=== PATIENT | male | born 1955 | race Caucasian/White ===

== ENCOUNTER 2018-06-25 14:10 | Emergency (ER) | payer OTHER ==
[2018-06-25 14:20] VITALS: BP 125/68
[2018-06-25] MEDS ORDERED: KETOROLAC TROMETHAMINE 60 MG/2 ML SDV IM ONE (14:25)
[2018-06-25] MEDS ORDERED: HYDROCODONE/ACETAMINOPHEN 5-325 MG TABLET PO ONE (14:25)
--- NOTE | 2018-06-25 14:59 | ER Document Report ---
ED Extremity Problem, Upper - General Chief Complaint: Arm Injury Stated Complaint: RIGHT WRIST INJURY Time Seen by Provider: 06/25/18 14:22 Mode of Arrival: Ambulatory Information source: Patient Notes: Chief complaint: fall History of complain:( obtained from----patient) 62 years old male fell off from a ladder about 2 feet, landed on her right arm since then having deformity of the distal right forearm And pain, minor injury to the left lower leg and right lower leg. No head injury no loss of consciousness currently has no headache no focal focal weakness. Denies any neck pain neck stiffness. Denies any injury to the upper back or lower back. Denies any chest pain shortness of breath. Denies any abdominal pain nausea vomiting. Ambulatory. No injury to the lower extremity to the point having difficulty in ambulation. Onset: As above Duration: Just prior to arrival Severity: Moderate Quality: Sharp Context:fall Exacerbating factor and relieving factors: Movement right forearm REVIEW OF SYSTEMS: CONSTITUTIONAL : Denies fever, chills, or sweats. Denies recent illness. EENT: Denies eye, ear, throat, or mouth pain or symptoms. Denies nasal or sinus congestion or discharge. Denies throat, tongue, or mouth swelling or difficulty swallowing. CARDIOVASCULAR: Denies chest pain. Denies palpitations or racing or irregular heart beat. Denies ankle edema. RESPIRATORY: Denies cough, cold, or chest congestion. Denies shortness of breath, difficulty breathing, or wheezing. GASTROINTESTINAL: Denies distention. Denies nausea, vomiting, or diarrhea. Denies blood in vomitus, stools, or per rectum. Denies black, tarry stools. Denies constipation. GENITOURINARY: Denies difficulty urinating, painful urination, burning, frequency, blood in urine, or discharge. FEMALE GENITOURINARY: Denies vaginal bleeding, heavy or abnormal periods, irregular periods. Denies vaginal discharge or odor. MUSCULOSKELETAL: SKIN: Denies rash, lesions or sores. HEMATOLOGIC : Denies easy bruising or bleeding. LYMPHATIC: Denies swollen, enlarged glands. NEUROLOGICAL: Denies confusion or altered mental status. Denies passing out or loss of consciousness. Denies dizziness or lightheadedness. Denies headache. Denies weakness or paralysis or loss of use of either side. Denies problems with gait or speech. Denies sensory loss, numbness, or tingling. Denies seizures. PSYCHIATRIC: Denies anxiety or stress. Denies depression, suicidal ideation, or homicidal ideation. ALL OTHER SYSTEMS REVIEWED AND NEGATIVE. PHYSICAL EXAMINATION: GENERAL: Well-appearing, well-nourished and mild to moderate acute distress. HEAD: Atraumatic, normocephalic. EYES: Pupils equal round and reactive to light, extraocular movements intact, conjunctiva are normal. ENT: Nares patent, oropharynx clear without exudates. Moist mucous membranes. NECK: Normal range of motion, supple without lymphadenopathy LUNGS: Breath sounds clear to auscultation bilaterally and equal. No wheezes rales or rhonchi. HEART: Regular rate and rhythm without murmurs ABDOMEN: Soft, nontender, nondistended abdomen. No guarding, no rebound. No masses appreciated. Examination of genitals-deferred Musculoskeletal: Right side -the distal forearm on the right side shows deformity swelling and tenderness. Wrist no swelling noted. And no swelling noted. No obvious injury to the elbows noted. No swelling. Both shoulders appears normal without any tenderness. NEUROLOGICAL: Cranial nerves grossly intact. Normal speech, normal gait. Normal sensory, motor exams PSYCH: Normal mood, normal affect. SKIN: Warm, Dry, normal turgor, no rashes or lesions noted. Dictation was performed using [employer] voice recognition software TRAVEL OUTSIDE OF THE [place] IN LAST 30 DAYS: No - HPI Notes: Dictated - Related Data Allergies/Adverse Reactions: gatifloxacin [From Tequin] Allergy (Verified 06/25/18 14:12) Past Medical History - Social History Smoking Status: Unknown if Ever Smoked Chew tobacco use (# tins/day): No Smoking Education Provided: No Frequency of alcohol use: Rare Drug Abuse: None Lives with: Family Family History: Reviewed & Not Pertinent Patient has suicidal ideation: No Patient has homicidal ideation: No - Past Medical History Cardiac Medical History: Reports: Hx Hypertension Endocrine Medical History: Reports: Hx Diabetes Mellitus Type 2 Renal/ Medical History: Denies: Hx Peritoneal Dialysis Musculoskeletal Medical History: Reports Hx Arthritis - Immunizations Hx Diphtheria, Pertussis, Tetanus Vaccination: Yes Review of Systems - Review of Systems Notes: Dictated Physical Exam - Vital signs Vitals: Temp Pulse Resp BP Pulse Ox 97.5 F 57 L 17 125/68 94 06/25/18 14:19 06/25/18 14:06/25/18 14:06/25/18 14:06/25/18 14:19 - Notes Notes: Dictated Course - Vital Signs Vital signs: Temp Pulse Resp BP Pulse Ox 97.5 F 57 L 17 125/68 94 06/25/18 14:06/25/18 14:19 06/25/18 14:19 06/25/18 14:06/25/18 14:19 - Diagnostic Test Radiology reviewed: Reports reviewed - Right distal radial compacted fracture Procedures - Immobilization Right Wrist Time completed: 15:56 Pre-Proc Neuro Vasc Exam: Normal Immobilizer type: Long arm posterior Performed by: Provider assisted Post-Proc Neuro Vasc Exam: Normal Alignment checked and good: Yes Discharge - Discharge Clinical Impression: Right radial fracture Qualifiers: Encounter type: initial encounter Radius location: distal Fracture type: closed Fracture morphology: unspecified fracture morphology Qualified Code(s): S52.501A - Unspecified fracture of the lower end of right radius, initial encounter for closed fracture Fall Qualifiers: Encounter type: initial encounter Qualified Code(s): W19.XXXA - Unspecified fall, initial encounter Condition: Fair Disposition: HOME, SELF-CARE Instructions: Radial Head Fracture ([facility]) Additional Instructions: Please follow-up with orthopedic surgeon Prescriptions: Naproxen 500 mg PO BID #60 tablet Oxycodone HCl/Acetaminophen [Percocet 5-325 mg Tablet] 1 - 2 tab PO Q4H PRN #15 tablet PRN Reason: Referrals: MIGNON COSTA MD [Primary Care Provider] - Follow up as needed
--- NOTE | 2018-06-25 15:09 | RADIOLOGY REPORT (SQ) ---
EXAM DESCRIPTION: FOREARM RIGHT COMPLETED DATE/TIME: 06/25/2018 3:00 pm REASON FOR STUDY: Injury/fracture COMPARISON: None. NUMBER OF VIEWS: Two views. TECHNIQUE: Two radiographic images acquired of the right forearm, including elbow and wrist in at le ast one projection. LIMITATIONS: None. FINDINGS: MINERALIZATION: Normal. BONES: There is a comminuted fracture of the distal radius. There is slight impaction. SOFT TISSUES: No obvious swelling or foreign body. OTHER: No other significant finding. IMPRESSION: Comminuted fracture of the distal radius with slight impaction. TECHNICAL DOCUMENTATION: JOB ID: [id number] [email or web address]- All Rights Reserved Reading location - IP/workstation name: [email or web address]
== END 2018-06-25 16:15 | disposition home or self-care (01) ==
LOC: ER 14:10
PROC: 2W38X1Z Immobilization of Right Upper Extremity using Splint (ICD-10-PCS; principal; 2018-06-25)
DX: S52.501A Unspecified fracture of the lower end of right radius, initial encounter for closed fracture (principal); M25.531 Pain in right wrist; M79.601 Pain in right arm; W11.XXXA Fall on and from ladder, initial encounter; I10 Essential (primary) hypertension; E11.9 Type 2 diabetes mellitus without complications
CPT/HCPCS: 99283; 96372; 73090; 29105; J1885

== ENCOUNTER 2018-06-30 13:31 | Day surgery (SDC) | payer OTHER ==
[~2018-06-30 13:31] MED LIST: CEFAZOLIN 2 GM/D5W RTU 2 GM/50 ML RTUPB IV PRN; DEXAMETHASONE SOD PHOSPHATE INJ 4 MG/1 ML VIAL ONE; FENTANYL CITRATE INJ/PF 100 MCG/2 ML AMPUL ONE; GLYCOPYRROLATE 1 MG/5 ML SYRINGE ONE; MIDAZOLAM 2 MG/2 ML INJ ONE; ONDANSETRON HCL INJ/PF 4 MG/2 ML SDV ONE; PROPOFOL INJ 200 MG/20 ML VIAL IV ONE
[2018-06-30 14:16] LABS: HEMATOCRIT 39.5 % (37.9-51.0); HEMOGLOBIN 13.7 g/dL (13.5-17.0); MEAN CORPUSCULAR HEMOGLOBIN 30.9 pg (27.0-33.4); MEAN CORPUSCULAR HGB CONC 34.7 g/dL (32.0-36.0); MEAN CORPUSCULAR VOLUME 89 fl (80-97); PLATELET COUNT 194 10^3/uL (150-450); RED BLOOD COUNT 4.45 10^6/uL (4.35-5.55); RED CELL DISTRIBUTION WIDTH 13.8 % (11.5-14.0); WHITE BLOOD COUNT 6.1 10^3/uL (4.0-10.5)
[2018-06-30 14:22] LABS: APPEARANCE,URINE CLEAR; BILIRUBIN,URINE NEGATIVE (NEGATIVE); COLOR,URINE YELLOW; GLUCOSE, URINE NEGATIVE (NEGATIVE); KETONES,URINE NEGATIVE (NEGATIVE); LEUKOCYTE ESTERASE,URINE NEGATIVE (NEGATIVE); NITRITE,URINE NEGATIVE (NEGATIVE); PROTEIN,URINE NEGATIVE (NEGATIVE)
[2018-06-30 14:38] LABS: ANION GAP 8 (5-19); BLOOD UREA NITROGEN 16 mg/dL (7-20); CALCIUM 9.2 mg/dL (8.4-10.2); CARBON DIOXIDE 26 mmol/L (22-30); CHLORIDE 107 mmol/L (98-107); GLUCOSE 117 mg/dL (75-110); POTASSIUM 4.5 mmol/L (3.6-5.0); SODIUM 140.5 mmol/L (137-145)
--- NOTE | 2018-06-30 14:43 | RADIOLOGY REPORT (SQ) ---
EXAM DESCRIPTION: CHEST SINGLE VIEW COMPLETED DATE/TIME: 06/30/2018 2:18 pm REASON FOR STUDY: preop COMPARISON: 01/23/2013 EXAM PARAMETERS: NUMBER OF VIEWS: One view. TECHNIQUE: Single frontal radiographic view of the chest acquired. RADIATION DOSE: NA LIMITATIONS: None. FINDINGS: LUNGS AND PLEURA: No opacities, masses or pneumothorax. No pleural effusion. MEDIASTINUM AND HILAR STRUCTURES: No masses. Contour normal. HEART AND VASCULAR STRUCTURES: Heart normal in size. Normal vasculature. BONES: No acute findings. HARDWARE: None in the chest. OTHER: No other significant finding. IMPRESSION: NO ACUTE RADIOGRAPHIC FINDING IN THE CHEST. TECHNICAL DOCUMENTATION: JOB ID: [id number] [employer]- All Rights Reserved Reading location - IP/workstation name: [email or web address]
[2018-06-30] MEDS ORDERED: ACETAMINOPHEN 1,000 MG/100 ML RTUPB IV ONE (15:37)
[2018-06-30] MEDS ORDERED: BUPIVACAINE HCL 0.5 % INJ/PF 30 ML SDV ONE (15:39)
[2018-06-30] MEDS ORDERED: CEFAZOLIN 2 GM/D5W RTU 2 GM/50 ML RTUPB IV ONE (15:46)
[2018-06-30] MEDS ORDERED: FENTANYL CITRATE INJ/PF 100 MCG/2 ML AMPUL IV PRN ×3 (16:35)
[2018-06-30] MEDS ORDERED: PROMETHAZINE HCL INJ 25 MG/1 ML VIAL IV PRN ×2 (16:35)
[2018-06-30] MEDS ORDERED: ONDANSETRON HCL INJ/PF 4 MG/2 ML SDV IV PRN ×2 (16:35→18:30)
[2018-06-30] MEDS ORDERED: MORPHINE SULFATE 10 MG/ML INJ IV PRN (16:35)
[2018-06-30] MEDS ORDERED: MEPERIDINE HCL/PF INJ 25 MG/1 ML DISP.SYRIN IV PRN (16:35)
[2018-06-30] MEDS ORDERED: DIPHENHYDRAMINE HCL 50 MG/ML VIAL IV PRN (16:35)
--- NOTE | 2018-06-30 17:00 | EKG REPORT ---
SEVERITY:- ABNORMAL ECG - SINUS RHYTHM RIGHT BUNDLE BRANCH BLOCK MISSING aVf LEAD : Confirmed by: Leigh Neumann MD 30-Jun-2018 16:59:18
[2018-06-30] MEDS ORDERED: HYDROMORPHONE HCL INJ/PF 2 MG/ML AMPULE IV PRN (18:30)
[2018-06-30] MEDS ORDERED: OXYCODONE-ACETAMINOPHEN 5-325 MG TABLET PO PRN (18:30)
--- NOTE | 2018-06-30 18:31 | Discharge Summary ---
Discharge Summary (SDC) - Discharge Final Diagnosis: Right distal radius fracture Date of Surgery: 06/30/18 Discharge Date: 06/30/18 Condition: Good Treatment or Instructions: Schedule Follow Up w/ Dr. Jesse Del Cid @ [facility] to be seen in 10-14 days or as scheduled [place]: [place]: [place]: Ice and elevate Keep splint clean/dry/intact. If your fingers become numb please unwrap the Jack wrap but leave the splint in place, if the sensation does not return within 30 minutes please return to the emergency department. May begin finger range of motion attempting to make full fist. Please use ibuprofen (Motrin or Advil) 600-800 mg every 8 hours as needed for pain or fever DO NOT TAKE w/ TORADOL may use once TORADOL complete. You may also use acetaminophen (Tylenol) 1000 mg every 4-6 hours as needed for pain or fever. Please be aware that many medications contain acetaminophen, do not exceed a total of 1000 mg of acetaminophen every 6 hours. If ibuprofen and acetaminophen are not sufficient for your pain you may take the Percocet/[place]. Please be aware that the Percocet/[place] does contain Tylenol. Stool softener of choice when on pain medication. Prescriptions: Ketorolac Tromethamine [Toradol 10 mg Tablet] 10 mg PO Q8 #12 tablet Oxycodone HCl/Acetaminophen [Percocet 5-325 mg Tablet] 1 tab PO Q6 #25 tab Referrals: EKVON DECKER MD [Primary Care Provider] - Discharge Diet: As Tolerated Respiratory Treatments at Home: Deep Breathing/Coughing Discharge Activity: No Lifting Over 10 Pounds, No Lifting/Push/Pulling Report the Following to Your Physician Immediately: Fever over 101 Degrees, Unusual Bleeding, Redness, Swelling, Warmth, Increased Soreness
[2018-06-30] MEDS ORDERED: LIDOCAINE 2%/EPINEPHRINE INJ 20 ML VIAL ONE (18:34)
[2018-06-30] MEDS ORDERED: LIDOCAINE 2% INJ (20 MG/ML) 20 ML MDV ONE (18:35)
[2018-06-30] MEDS ORDERED: ROPIVACAINE HCL 0.5% INJ/PF (5 MG/1 ML) 30 ML SDV ONE (18:35)
--- NOTE | 2018-06-30 18:39 | Operative Report ---
Operative Report DATE OF SURGERY: 06/30/18 PREOPERATIVE DIAGNOSIS: Right distal radius fracture POSTOPERATIVE DIAGNOSIS: Same OPERATION: Right 3 part intra-articular distal radius fracture SURGEON: PRABHU Patterson ANESTHESIA: GA COMPLICATIONS: None ESTIMATED BLOOD LOSS: Minimal PROCEDURE: Indication for above procedure: 62-year-old male who sustained a fall onto his right wrist from a ladder. Patient had x-rays demonstrating a distal radius fracture. Upon follow-up at my office radiographs were retaken demonstrating worsening displacement and instability of the fracture. At that point decision was made to proceed with operative intervention. Risks and benefits of the operative procedure were explained to the patient and family who verbalized understanding consented for the procedure. Procedure In Detail: Patient was seen and evaluated in the preoperative holding area. The RIGHT upper extremity was initialized and marked. Patient received 2g of Ancef IV for bacterial prophylaxis. Patient was taken back to the operative room where transferred to the operative table and placed under general anesthesia. Once they were adequately anesthetized and a nonsterile tourniquet was placed on his upper extremity. A surgical team debriefing was performed ensuring all instrumentation was available, the surgical procedure was discussed with possible concerns reviewed. The upper extremity was prepped with chlorhexidine and alcohol and draped in a sterile fashion. A timeout was done identifying correct patient, procedure and extremity everyone in attendance agree with this and verbalized no concerns.The extremity was exsanguinated the tourniquet was inflated to 250 mmHg. A longitudinal skin incision was made via a volar approach of Sharif along the FCR tendon sheath. The FCR tendon sheath was opened and the FCR retracted ulnarly, the palmar cutaneous branch of the median nerve was identified and protected throughout the entirety of the case. The radial artery was identified and retracted radially. Blunt dissection was performed to the FPL which was carefully sweeped ulnarly. The pronator quadratus was elevated off of the distal radius via sharp dissection with a 15 blade to allow later repair. The fracture was then identified and a reduction maneuver was performed utilizing a Woodworth elevator. There is a large volar ulnar corner piece with dorsal comminution and a radial styloid fragment. The radial styloid fragment was isolated by releasing the brachioradialis. The radial styloid was then reduced and held with a K wire. A second K wire was placed from anterior to posterior through the volar ulnar corner to maintain reduction. Acceptable reduction was then confirmed with C arm fluoroscopy. A wide Acumed 4 hole volar distal radius plate was placed into position and fixated with a K wire distally x2. However appropriate tilt was not appreciated thus the K wires were removed and a kickstand was placed proximally and the K wires were reinserted. AP and lateral radiographs were then obtained demonstrating appropriate placement of the plate and acceptable reduction of the fracture. Using a reduction tenaculum I was able to bring the plate down to bone distally. After drilling distally a cortical screw was used bringing the plate further down to bone, avoiding any liftoff of the plate from the volar cortex that could cause flexor tendon irritation post-operativley. Drilling the near cortex and to but not thru the far cortex additional locking screws were then placed. One hole was left free to place a frag lock screw. The drill for the frag lock was utilized and the frag lock nurse paralegal placed and secured into position. K wire was placed from anterior to posterior. A 3 cm incision was made only dorsum of the wrist blunt dissection performed the extensor tendons were isolated and identified to ensure there is no evidence of impingement. Once I assured the tendons were free the dorsal locking mechanism of the frag-lock was inserted into position providing fixation to the dorsal fragment. The previous cortex screw was removed and replaced with a locking screw. Two additional screws were placed into the styloid giving further stability to the radial styloid piece. AP and lateral radius were then done confirming appropriate placement of plate with no evidence of penetration intra-articular or within the DRUJ. I then turned my attention to the proximal screws. I drilled bicortically bringing the plate down to bone with a cortex screw. An additional 2 bicortical cortex screws were placed further providing fixation proximally. The last hole was drilled and a locking screw placed. The K wire within the radial styloid was cut bent left outside the skin for later removal. AP and lateral radiographs were done confirming appropriate placement of the plate and reduction of the fracture there was zoroastrian of radial height, radial inclination and volar tilt. No evidence of dorsal screw prominence or intra-articular penetration of the DRUJ or radiocarpal joint. The wound was copiously irrigated with normal saline. There was no evidence of DRUJ instability on examination, Negative Hess's test, No crepitus with range of motion at the radiocarpal joint or DRUJ. I then closed the pronator quadratus with interrupted 3-0 Monocryl suture. Tourniquet was deflated. Any peripheral bleeding was controlled with bipolar cautery into the wound was dry. Subcutaneous tissues were closed with interrupted 4-0 Monocryl suture. The skin was closed with a running 3-0 nylon suture suture. 30 mL of 0.5% Marcaine were injected for postoperative pain control. The tourniquet was then deflated. Was dressed with sterile 4 x 4's and patient was placed in a well- padded volar splint with bias wrap. Sponge counts, instrument counts and needle counts were correct. There was no intraoperative complications patient tolerated procedure well stable to PACU. Postoperative plan: Patient will be switched to a Exos @ first postoperative followup visit and begin range of motion. Patient is encouraged to start vitamin C 500 mg daily for 51 days. Will obtain radiographs at followup of the wrist.
--- NOTE | 2018-06-30 19:49 | RADIOLOGY REPORT (SQ) ---
EXAM DESCRIPTION: NO CHG FLUORO; WRIST RIGHT 2 VIEWS COMPLETED DATE/TIME: 06/30/2018 7:36 pm REASON FOR STUDY: ORIF RT WRIST COMPARISON: None. FLUOROSCOPY TIME: 2 minutes 46 seconds 4 Images saved to PACS LIMITATIONS: None. PROCEDURE: ORIF half right wrist. FINDINGS: Images from fluoro document placement of a compression plate on the volar aspect of the di stal radius. IMPRESSION: ORIF right wrist fracture. Refer to operative note for further information. COMMENT: PQRS 6045F: Fluoroscopy time of the procedure is documented in the report. TECHNICAL DOCUMENTATION: JOB ID: [id number] [employer]- All Rights Reserved Reading location - IP/workstation name: [email or web address]
--- NOTE | 2018-06-30 19:49 | RADIOLOGY REPORT (SQ) ---
EXAM DESCRIPTION: NO CHG FLUORO; WRIST RIGHT 2 VIEWS COMPLETED DATE/TIME: 06/30/2018 7:36 pm REASON FOR STUDY: ORIF RT WRIST COMPARISON: None. FLUOROSCOPY TIME: 2 minutes 46 seconds 4 Images saved to PACS LIMITATIONS: None. PROCEDURE: ORIF half right wrist. FINDINGS: Images from fluoro document placement of a compression plate on the volar aspect of the di stal radius. IMPRESSION: ORIF right wrist fracture. Refer to operative note for further information. COMMENT: PQRS 6045F: Fluoroscopy time of the procedure is documented in the report. TECHNICAL DOCUMENTATION: JOB ID: [id number] [employer]- All Rights Reserved Reading location - IP/workstation name: [email or web address]
[2018-06-30 22:24] VITALS: BP 142/61
== END 2018-06-30 22:00 | disposition home or self-care (01) ==
LOC: OROUT 13:31 → 5 19:33 → OROUT 22:00
PROVIDERS: ATTEND Orthopaedic Surgery
DX: S52.571A Other intraarticular fracture of lower end of right radius, initial encounter for closed fracture (principal); S86.911A Strain of unspecified muscle(s) and tendon(s) at lower leg level, right leg, initial encounter; W11.XXXA Fall on and from ladder, initial encounter; W13.2XXA Fall from, out of or through roof, initial encounter; Y92.008 Other place in unspecified non-institutional (private) residence as the place of occurrence of the external cause; M25.531 Pain in right wrist; Z88.1 Allergy status to other antibiotic agents; G47.33 Obstructive sleep apnea (adult) (pediatric); E66.9 Obesity, unspecified; Z68.39 Body mass index [BMI] 39.0-39.9, adult
CPT/HCPCS: 36415; 85027; 80048; 81001; 71045; 73100; 93005; 93010; 25609; C1713 ×11; C1769 ×2; J2795; J2250; J3490 ×4; J1100; J3010; J2405; J2704; J0690; J0131; 01830

== ENCOUNTER 2020-01-13 13:06 | Emergency (ER) | payer OTHER ==
[2020-01-13 13:12] VITALS: BP 167/85
--- NOTE | 2020-01-13 13:25 | ER Document Report ---
ED Medical Screen (RME) - General Chief Complaint: Abscess Stated Complaint: ABSCESS/LOW BACK Time Seen by Provider: 01/13/20 13:15 Primary Care Provider: KEVON DECKER MD [Primary Care Provider] - Follow up as needed Mode of Arrival: Ambulatory Information source: Patient Notes: 64-year-old male patient presenting to the emergency department with recurrent abscess to his low back. Patient was sent over from his doctor's office. Apparently there is a concern that the abscess may need surgical debridement. Patient has had this abscess ongoing for several days now. He reports that he is seen his doctor several times for it. He is now running a fever, he had a fever last night of 101, today in the tent it was 100.8. Patient denies any other symptoms or reason he should have a fever, denies cough congestion, nausea, vomiting, diarrhea. I have greeted and performed a rapid initial assessment of this patient. A comprehensive ED assessment and evaluation of the patient, analysis of test results and completion of the medical decision making process will be conducted by additional ED providers. I have specifically instructed the patient or family members with the patient to immediately return to any nursing staff should anything change in the patient's condition or with their chief complaint. TRAVEL OUTSIDE OF THE [place] IN LAST 30 DAYS: No - [facility] sep 2017 - Related Data Allergies/Adverse Reactions: clarithromycin [From Biaxin] Allergy (Verified 06/29/18 10:09) severe joint pain/inflammation, fever erythromycin base Allergy (Verified 06/29/18 10:09) severe joint pain/inflammation, fever gatifloxacin [From Tequin] Allergy (Verified 06/25/18 14:12) Past Medical History - Past Medical History Cardiac Medical History: Reports: Hx Hypertension - high in dr gordon office, no current meds Denies: Hx Coronary Artery Disease, Hx Heart Attack Pulmonary Medical History: Reports: Hx Pneumonia - 20 years ago Denies: Hx Asthma, Hx Bronchitis, Hx COPD Neurological Medical History: Denies: Hx Cerebrovascular Accident, Hx Seizures Endocrine Medical History: Reports: Hx Diabetes Mellitus Type 2 Renal/ Medical History: Denies: Hx Peritoneal Dialysis Musculoskeltal Medical History: Reports Hx Arthritis - knees, fingers - Immunizations Hx Diphtheria, Pertussis, Tetanus Vaccination: Yes - 2013 Physical Exam - Vital signs Vitals: Temp Pulse Resp BP Pulse Ox 99.8 F 97 18 167/85 H 95 01/13/20 13:11 01/13/20 13:11 01/13/20 13:11 01/13/20 13:11 01/13/20 13:11 Course - Vital Signs Vital signs: Temp Pulse Resp BP Pulse Ox 99.8 F 97 18 167/85 H 95 01/13/20 13:11 01/13/20 13:11 01/13/20 13:11 01/13/20 13:11 01/13/20 13:11 Doctor's Discharge - Discharge Referrals: KEVON DECKER MD [Primary Care Provider] - Follow up as needed
[2020-01-13 14:07] LABS: ABSOLUTE BASOPHILS # (AUTO) 0.1 10^3/uL (0.0-0.2); ABSOLUTE EOSINOPHILS # (AUTO) 0.1 10^3/uL (0.0-0.6); ABSOLUTE LYMPHOCYTES (AUTO) 0.9 10^3/uL (0.5-4.7); ABSOLUTE MONOCYTES (AUTO) 1.2 10^3/uL (0.1-1.4); ABSOLUTE NEUT (AUTO) 7.4 10^3/uL (1.7-8.2); BASOPHILS % (AUTO) 0.7 % (0-2); EOSINOPHILS % (AUTO) 0.9 % (0-6); HEMATOCRIT 36.4 % (37.9-51.0); HEMOGLOBIN 12.6 g/dL (13.5-17.0); LYMPHOCYTES % (AUTO) 9.4 % (13-45); MEAN CORPUSCULAR HEMOGLOBIN 29.7 pg (27.0-33.4); MEAN CORPUSCULAR HGB CONC 34.5 g/dL (32.0-36.0); MEAN CORPUSCULAR VOLUME 86 fl (80-97); MONOCYTES % (AUTO) 12.6 % (3-13); PLATELET COUNT 198 10^3/uL (150-450); RED BLOOD COUNT 4.23 10^6/uL (4.35-5.55); RED CELL DISTRIBUTION WIDTH 14.5 % (11.5-14.0); SEGMENTED NEUTROPHILS % (AUTO) 76.4 % (42-78); TOTAL CELLS COUNTED % (AUTO) 100 %; WHITE BLOOD COUNT 9.7 10^3/uL (4.0-10.5)
--- NOTE | 2020-01-13 14:09 | ER Document Report ---
ED General - General Chief Complaint: Abscess Stated Complaint: ABSCESS/LOW BACK Time Seen by Provider: 01/13/20 13:15 Primary Care Provider: KEVON DECKER MD [Primary Care Provider] - Follow up as needed Mode of Arrival: Ambulatory Information source: Patient TRAVEL OUTSIDE OF THE [place] IN LAST 30 DAYS: María sandra in sep 2017 - HPI Notes: 64 yr old male presents today with complaints of a cellulitis to his thoracic spine that is become progressively worse over the last few days. His primary care provider has drained his abscess to his the mid back twice already gave him a shot of Rocephin this morning but advised him to go to the emergency room because he may need surgical consult. Patient denies a history of MRSA. Denies fevers, chills, chest pain,palpitations, shortness of breath, dyspnea, nausea, vomiting, diarrhea, abdominal pain, hematuria,blurred vision, double vision, loss of vision, speech changes, LH, dizziness, syncope, headaches, wheezing, ST, URI, neck pain, weakness, bowel or bladder dysfunction, saddle anesthesia, numbness or tingling in bilateral upper or lower extremities equally, muscle paralysis, weakness in bilateral upper or lower extremities equally or rash. - Related Data Allergies/Adverse Reactions: clarithromycin [From Biaxin] Allergy (Verified 01/13/20 13:39) severe joint pain/inflammation, fever erythromycin base Allergy (Verified 01/13/20 13:39) severe joint pain/inflammation, fever gatifloxacin [From Tequin] Allergy (Verified 01/13/20 13:39) Past Medical History - General Information source: Patient - Social History Smoking Status: Never Smoker Family History: Reviewed & Not Pertinent Patient has suicidal ideation: No Patient has homicidal ideation: No - Past Medical History Cardiac Medical History: Reports: Hx Hypertension - high in dr gordon office, no current meds Denies: Hx Coronary Artery Disease, Hx Heart Attack Pulmonary Medical History: Reports: Hx Pneumonia - 20 years ago Denies: Hx Asthma, Hx Bronchitis, Hx COPD Neurological Medical History: Denies: Hx Cerebrovascular Accident, Hx Seizures Endocrine Medical History: Reports: Hx Diabetes Mellitus Type 2 Renal/ Medical History: Denies: Hx Peritoneal Dialysis Musculoskeletal Medical History: Reports Hx Arthritis - knees, fingers - Immunizations Hx Diphtheria, Pertussis, Tetanus Vaccination: Yes - 2013 Hx Pneumococcal Vaccination: 07/06/17 Review of Systems - Review of Systems Constitutional: No symptoms reported EENT: No symptoms reported Cardiovascular: No symptoms reported Respiratory: No symptoms reported Gastrointestinal: No symptoms reported Genitourinary: No symptoms reported Male Genitourinary: No symptoms reported Musculoskeletal: No symptoms reported Skin: See HPI Hematologic/Lymphatic: No symptoms reported Neurological/Psychological: No symptoms reported Physical Exam - Vital signs Vitals: Temp Pulse Resp BP Pulse Ox 99.8 F 97 18 167/85 H 95 01/13/20 13:11 01/13/20 13:11 01/13/20 13:11 01/13/20 13:11 01/13/20 13:11 - Notes Notes: PHYSICAL EXAMINATION:reviewed vital signs by RN GENERAL: Well-appearing, well-nourished and in no acute distress. HEAD: Atraumatic, normocephalic. EYES: Pupils equal round and reactive to light, extraocular movements intact, sclera anicteric, conjunctiva are normal. ENT: Nares patent, oropharynx clear without exudates. Moist mucous membranes. NECK: Normal range of motion, supple without lymphadenopathy LUNGS: Breath sounds clear to auscultation bilaterally and equal. No wheezes rales or rhonchi. HEART: Regular rate and rhythm without murmurs ABDOMEN: Soft, nontender, nondistended abdomen. No guarding, no rebound. No masses appreciated. Musculoskeletal: Normal range of motion, no pitting or edema. No cyanosis. NEUROLOGICAL: Cranial nerves grossly intact. Normal speech, normal gait. Normal sensory, motor exams PSYCH: Normal mood, normal affect. SKIN: Warm, Dry, normal turgor, no rashes or lesions noted. Approximately 6 cm x 6 cm area of erythema induration warmth to touch to T9-T12 respectively. No fluctuance. No surrounding erythema induration or warmth to touch. No noted abscess Course - Re-evaluation Re-evalutation: 01/13/20 16:51 Afebrile vital stable no distress. Nurse's notes reviewed. CBC negative for leukocytosis or anemia, CMP negative for hepatic or renal dysfunction, no electrolyte disturbances. CT of thoracic spine with contrast shows that patient has a edema changes to the sub-continuous fatty tissues possibly due to infection. 2 cm distinct rounded area localized just below the skin surface at the level of T12 which could represent a developing abscess no actual fluid collection at the time. Consulted with Dr. Santiago Chavez, supervising physician who felt that it was appropriate to consult Dr. James Delgado, surgeon on-call at 1600 - Vital Signs Vital signs: Temp Pulse Resp BP Pulse Ox 102.0 F H 97 18 167/85 H 95 01/13/20 17:31 01/13/20 13:11 01/13/20 13:11 01/13/20 13:11 01/13/20 13:11 - Laboratory Result Diagrams: 01/13/20 13:50 01/13/20 13:50 Laboratory results interpreted by me: 01/13/20 01/13/20 13:50 13:50 RBC 4.23 L Hgb 12.6 L Hct 36.4 L RDW 14.5 H Lymph % (Auto) 9.4 L ESR 43 H Sodium 134.7 L Carbon Dioxide 21 L Glucose 125 H C-Reactive Protein 147.8 H Discharge - Discharge Clinical Impression: Abscess, Cellulitis Condition: Stable Disposition: HOME, SELF-CARE Instructions: MRSA Cellulitis ([facility]), Abscess ([facility]), Post Incision and Drainage, Oral Narcotic Medication ([facility]) Additional Instructions: You need to take the antibiotics as prescribed. Do not stop even if the rash goes away until you have completed all the antibiotics. The area of redness was traced out here in the emergency department with a marking pen. You need to return to emergency department if the redness spreads. Do not drive, drink or operate heavy machinery while taking medication cause sedation or impairment of cognitive function you should also return if you develop fevers with temperature greater than 101, persistent vomiting, worsening pain, or have any other symptoms that are concerning to you. Return immediately for any new or worsening symptoms. Follow up with primary care provider, call tomorrow to make followup appoint ment. Prescriptions: Doxylamine Succinate/Vit B6 [Ronaldo Prabhakar 10-10 mg Tablet] 1 each PO BID #20 tablet. Referrals: KEVON DECKER MD [Primary Care Provider] - Follow up tomorrow
[2020-01-13 14:30] LABS: ALBUMIN 4.1 g/dL (3.5-5.0); ALKALINE PHOSPHATASE 87 U/L (38-126); ANION GAP 9 (5-19); ASPARTATE AMINO TRANSFERASE 17 U/L (17-59); BILIRUBIN,DIRECT 0.2 mg/dL (0.0-0.4); BILIRUBIN,TOTAL 0.9 mg/dL (0.2-1.3); BLOOD UREA NITROGEN 12 mg/dL (7-20); CALCIUM 8.8 mg/dL (8.4-10.2); CARBON DIOXIDE 21 mmol/L (22-30); CHLORIDE 105 mmol/L (98-107); GLUCOSE 125 mg/dL (75-110)
[2020-01-13 14:45] LABS: C-REACTIVE PROTEIN 147.8 mg/L (<10.0)
[2020-01-13 14:48] LABS: ERYTHROCYTE SEDIMENTATION RATE 43 mm/hr (0-20)
--- NOTE | 2020-01-13 15:29 | RADIOLOGY REPORT (SQ) ---
EXAM DESCRIPTION: CT THORACIC SPINE WITH IMAGES COMPLETED DATE/TIME: 01/13/2020 3:14 pm REASON FOR STUDY: cellulitis of thoracic area COMPARISON: None. TECHNIQUE: Axial images acquired through the thoracic spine with intravenous contrast. Images revie wed with lung, soft tissue and bone windows. Reconstructed coronal and sagittal MPR images reviewed. Images stored on PACS. All CT scanners at this facility use dose modulation, iterative reconstruction, and/or weight based d osing when appropriate to reduce radiation dose to as low as reasonably achievable (ALARA). [facility]: Dose Right [facility]: CareDose [facility]: Dose Right [facility]: Teradose 4D [facility]: foodpanda / hellofood CONTRAST TYPE AND DOSE: 100 mL Omnipaque 300. RENAL FUNCTION: BUN 12 creatinine 0.83. LIMITATIONS: None. FINDINGS: VISUALIZED LUNGS: No acute opacities. No pneumothorax. SOFT TISSUES: Increased density in the subcutaneous fatty tissues of the lower posterior thoracic reg ion, left of the midline. 2 cm indistinct focal rounded area located just below the skin surface at approximately the level of T12. VERTEBRAL BODIES: No fractures. No dislocation. No acute findings. DISCS: No significant disc space narrowing. ALIGNMENT: Normal. TRANSVERSE PROCESSES, POSTERIOR ELEMENTS: No fractures. No dislocation. No acute findings. HARDWARE: None in the spine. VISUALIZED RIBS: No fractures. OTHER: No other significant finding. IMPRESSION: EDEMA/INFLAMMATORY CHANGES IN THE SUBCUTANEOUS FATTY TISSUES, POSSIBLY DUE TO INFECTION. 2 CM INDISTINCT ROUNDED AREA LOCATED JUST BELOW THE SKIN SURFACE AT THE LEVEL OF T12 COULD REPRESEN T A DEVELOPING ABSCESS. NO ACTUAL FLUID COLLECTION AT THIS TIME. TECHNICAL DOCUMENTATION: JOB ID: [id number] 2010 [employer]- All Rights Reserved Reading location - IP/workstation name: [email or web address]
[2020-01-13] MEDS ORDERED: LIDOCAINE 1% INJ (10 MG/ML) 10 ML MDV INJ ONE (16:46)
[2020-01-13] MEDS ORDERED: LIDOCAINE 2% INJ (20 MG/ML) 20 ML MDV INJ ONE (17:00)
[2020-01-13] MEDS ORDERED: DOXYCYCLINE HYCLATE 100 MG TABLET PO ONE (17:40)
[2020-01-13] MEDS ORDERED: HYDROCODONE/ACETAMINOPHEN 5-325 MG (6 TAB/ER DISP) PO PRN ×2 (17:40→17:52)
[2020-01-13] MEDS ORDERED: ACETAMINOPHEN 325 MG TABLET PO ONE (17:43)
--- NOTE | 2020-01-13 19:53 | PDOC CONSULTATION ---
Consultation Consult Date: 01/13/20 Provider Consulted: SURGICAL SURGICALIST Consult reason:: Back abscess History of Present Illness Admission Date/PCP: KEVON DECKER MD Patient complains of: Back abscess History of Present Illness: KELSEY CUEVAS is a 64 year old male with a history of a back abscess for several weeks. He has been treated with outpatient antibiotics (Bactrim and Keflex, separate occasions). The patient reports continued worsening of his pain, induration, erythema, and drainage despite antibiotics. The patient had limited I&D performed at his primary care provider's office. This also failed to resolve his infection. The patient reports increasing pain, redness, and induration of an area of the left mid back. The patient reports purulent drainage. His pain is 6 out of 10. It does not radiate. It is worse with palpation and movement. He denies overt fevers or chills. He also denies malaise, fatigue, melena, hematochezia, hematemesis, chest pain, shortness of breath, abdominal pain, headache, dizziness, blurry vision, orthostasis, nausea, or vomiting. The patient is a diabetic, and reports that he does not check his sugars as often as he should. Past Medical History Cardiac Medical History: Reports: Hypertension - high in dr gordon office, no current meds Denies: Coronary Artery Disease, Myocardial Infarction Pulmonary Medical History: Reports: Pneumonia - 20 years ago Denies: Asthma, Bronchitis, Chronic Obstructive Pulmonary Disease (COPD) Neurological Medical History: Denies: Seizures Endocrine Medical History: Reports: Diabetes Mellitus Type 2 Musculoskeltal Medical History: Reports: Arthritis - knees, fingers Hematology: Denies: Anemia Social History Smoking Status: Never Smoker Hx Recreational Drug Use: No Hx Prescription Drug Abuse: No Family History Family History: Reviewed & Not Pertinent Parental Family History Reviewed: Yes Children Family History Reviewed: Yes Sibling(s) Family History Reviewed.: Yes Medication/Allergy Home Medications: Ibuprofen 600 mg PO TID #30 tablet 01/23/13 Naproxen 500 mg PO BID #60 tablet 06/25/18 Oxycodone HCl/Acetaminophen [Percocet 5-325 mg Tablet] 1 - 2 tab PO Q4H PRN #15 tablet 06/25/18 Ketorolac Tromethamine [Toradol 10 mg Tablet] 10 mg PO Q8 #12 tablet 06/30/18 Oxycodone HCl/Acetaminophen [Percocet 5-325 mg Tablet] 1 tab PO Q6 #25 tab 06/30/18 Doxylamine Succinate/Vit B6 [Ronaldo Prabhakar 10-10 mg Tablet] 1 each PO BID #20 tablet. 01/13/20 Allergies/Adverse Reactions: clarithromycin [From Biaxin] Allergy (Verified 01/13/20 13:39) severe joint pain/inflammation, fever erythromycin base Allergy (Verified 01/13/20 13:39) severe joint pain/inflammation, fever gatifloxacin [From Tequin] Allergy (Verified 01/13/20 13:39) Review of Systems Constitutional: ABSENT: anorexia, chills, fatigue Eyes: ABSENT: visual disturbances Ears: ABSENT: hearing changes Nose, Mouth, and Throat: ABSENT: sore throat Cardiovascular: ABSENT: chest pain Respiratory: ABSENT: cough Gastrointestinal: ABSENT: abdominal pain, hematemesis, hematochezia, melena, nausea, vomiting Genitourinary: ABSENT: dysuria Musculoskeletal: PRESENT: back pain Integumentary: PRESENT: lesions, pruritus, wounds Neurological: ABSENT: confusion, convulsions, dizziness Psychiatric: ABSENT: anxiety, depression Endocrine: ABSENT: cold intolerance, heat intolerance Hematologic/Lymphatic: ABSENT: easy bleeding, easy bruising Physical Exam Vital Signs: Temp Pulse Resp BP Pulse Ox 102.0 F H 97 18 167/85 H 95 01/13/20 17:31 01/13/20 13:11 01/13/20 13:11 01/13/20 13:11 01/13/20 13:11 Intake & Output 01/12/20 01/13/20 01/14/20 06:59 06:59 06:59 Weight 140.8 kg General appearance: PRESENT: no acute distress, cooperative, obese Eye exam: PRESENT: EOMI, PERRLA. ABSENT: scleral icterus Mouth exam: PRESENT: moist, neck supple Neck exam: ABSENT: meningismus, tenderness, thyromegaly, tracheal deviation Respiratory exam: PRESENT: unlabored. ABSENT: tachypnea, wheezes Cardiovascular exam: ABSENT: tachycardia Pulses: PRESENT: normal radial pulses GI/Abdominal exam: PRESENT: soft. ABSENT: distended, firm, guarding, rigid, tenderness Rectal exam: PRESENT: deferred Extremities exam: ABSENT: clubbing Musculoskeletal exam: ABSENT: deformity Neurological exam: PRESENT: alert, awake, oriented to person, oriented to place, oriented to time, oriented to situation Psychiatric exam: ABSENT: agitated, anxious, depressed Focused psych exam: ABSENT: delusional Skin exam: PRESENT: erythema, other - Large carbuncle of the left mid back. There is purulent drainage from the area. There is a large amount of induration and erythema.. ABSENT: cyanosis Results Laboratory Results: 01/13/20 13:50 01/13/20 13:50 01/13/20 01/13/20 13:50 13:50 WBC 9.7 RBC 4.23 L Hgb 12.6 L Hct 36.4 L MCV 86 MCH 29.7 MCHC 34.5 RDW 14.5 H Plt Count 198 Seg Neutrophils % 76.4 Sodium 134.7 L Potassium 4.0 Chloride 105 Carbon Dioxide 21 L Anion Gap 9 BUN 12 Creatinine 0.83 Est GFR ( Amer) > 60 Glucose 125 H Calcium 8.8 Total Bilirubin 0.9 AST 17 Alkaline Phosphatase 87 C-Reactive Protein 147.8 H Total Protein 7.0 Albumin 4.1 Impressions: Thoracic Spine CT 01/13/20 14:40 IMPRESSION: EDEMA/INFLAMMATORY CHANGES IN THE SUBCUTANEOUS FATTY TISSUES, POSSIBLY DUE TO INFECTION. 2 CM INDISTINCT ROUNDED AREA LOCATED JUST BELOW THE SKIN SURFACE AT THE LEVEL OF T12 COULD REPRESENT A DEVELOPING ABSCESS. NO ACTUAL FLUID COLLECTION AT THIS TIME. Assessment & Plan - Diagnosis (1) Abscess of back Is this a current diagnosis for this admission?: Yes - Plan Summary Plan Summary: This is a 64-year-old diabetic male with a back abscess. He was given Rocephin earlier today. He is also had prescriptions for Bactrim and Keflex which did not resolve his infection. Patient has what appears to be a large abscess. I recommended incision and drainage, as well as antibiotics to cover MRSA. The patient has agreed to this. I have also recommended that the patient tightly controlled his blood sugars. He reports that he is not as diligent as he should be regarding blood sugar monitoring. Risks/benefits of the procedure were discussed, informed consent was obtained, and all questions answered.
--- NOTE | 2020-01-13 19:58 | Operative Report ---
Nonrecallable Operative Report DATE OF SURGERY: 01/13/20 PREOPERATIVE DIAGNOSIS: Large back abscess POSTOPERATIVE DIAGNOSIS: Same as above OPERATION: Incision and drainage of a large back abscess SURGEON: MAX KIRKLAND ANESTHESIA: Local - 25 cc of 2% lidocaine TISSUE REMOVED OR ALTERED: Wound culture COMPLICATIONS: None apparent ESTIMATED BLOOD LOSS: Minimal PROCEDURE: Drains/implants: 4 x 4 gauze packing. Procedure in detail: After informed consent was obtained, the patient was laid in the prone position in the ER. The area of the mid back was prepped and draped in a normal sterile fashion. The area of purulent drainage was identified. The skin and subcutaneous tissues were infiltrated with 2% lidocain e. The most affected area was then incised with an 11 blade scalpel. There was a large amount of purulent material beneath the skin, and a large cavity. An ellipse of tissue was removed, approximately 3 to 4 cm in total length. This was done to facilitate drainage of the large abscess cavity, and remove obviously unhealthy skin. Wound cultures were taken. The cavity was irrigated and cleaned. The wound was then packed with a 4 x 4 gauze. A dressing was placed, and the procedure was concluded. All sponge, instrument, and needle counts were correct. Condition: Stable.
== END 2020-01-13 18:20 | disposition home or self-care (01) ==
LOC: ER 13:06
PROC: 0J970ZZ Drainage of Back Subcutaneous Tissue and Fascia, Open Approach (ICD-10-PCS; principal; 2020-01-13)
DX: L02.212 Cutaneous abscess of back [any part, except buttock and flank] (principal); L03.312 Cellulitis of back [any part except buttock and flank]; A49.02 Methicillin resistant Staphylococcus aureus infection, unspecified site; Z88.1 Allergy status to other antibiotic agents; Z88.8 Allergy status to other drugs, medicaments and biological substances; I10 Essential (primary) hypertension
CPT/HCPCS: 99284; 36415; 87070; 87205; 80307; 85025; 85652; 87075; 86140; 87077; 80053; 87186; 72129; 10061; J3490